=== PATIENT | female | born 1965 | race Caucasian/White ===

== ENCOUNTER 2020-08-05 22:47 | Emergency (ER) | payer OTHER ==
[~2020-08-05 22:47] MED LIST: ABILIFY10 MG PO; ALBUTEROL2.5 MG/3 M INH; AMITRIPTYLINE H50 MG PO; AMLODIPINE BESY10 MG PO; ASPIRIN EC81 MG PO; CATAPRES 0.1MG0.1 MG PO; CLINDAMYCIN HC300 MG PO; CLONAZEPAM1 MG PO; CLONIDINE HCL0.1 M1 PO; COZAAR50 MG PO; ELAVIL 50 MG TA50 MG PO; FELDENE10 MG PO; FLEXERIL 10 MG10 MG PO; IBUPROFEN600 MG PO; IMDUR ER TAB 3030 MG PO; IMDUR ER TAB 6060 MG PO; KLONOPIN TAB 00.5 MG PO; LAMICTAL100 MG PO; LAMOTRIGINE150 MG PO; LOPRESSOR50 MG PO; LOSARTAN POTAS100 MG PO; MEDROL DOSEPAK 24 MG PO; NAPROSYN500 MG PO; NORFLEX 100 MG100 MG PO; PAXIL20 MG PO; PAXIL40 MG PO; PERCOCET 5/325 T1 EA PO; PERCOCET 7.5-31 EACH PO; PREDNISONE20 MG PO; PROAIR HFA8.5 GM INH; PROTONIX 40 MG40 M1 PO; PROTONIX40 MG PO; REGLAN5 MG PO; SENOKOT-S TABL1 EACH PO; SEROQUEL100 MG PO; SINGULAIR10 MG PO; TIZANIDINE HCL4 MG PO; TOPROL XL 25 MG25 MG PO; TORADOL 10 MG T10 MG PO; TRAZODONE HCL100 MG PO; ULTRAM50 MG PO; VIBRAMYCIN100 MG PO; VRAYLAR; VRAYLAR3 MG PO; Voltaren Gel 1 % TOP; ZOFRAN ODT 4 MG4 MG SL
[2020-08-05 23:30] LABS: HEMOGLOBIN 11.3 gm/dl (12.3-15.3); RED BLOOD COUNT 3.8 M/UL (4.00-5.10); WHITE BLOOD COUNT 7.5 K/UL (4.5-11.0)
[2020-08-05 23:48] LABS: BUN/CREATININE RATIO 11 (0-10)
[2020-08-06] MEDS ORDERED: BACTRIM DS TAB1 EACH PO (00:26)
[2020-08-06] MEDS ORDERED: PERCOCET 5-3251 EACH PO (00:26)
== END 2020-08-06 00:35 | disposition home or self-care (01) ==
LOC: ER1 22:47
PROVIDERS: Family Medicine
DX: L03.116 Cellulitis of left lower limb (principal); E11.9 Type 2 diabetes mellitus without complications; I10 Essential (primary) hypertension; J44.9 Chronic obstructive pulmonary disease, unspecified
CPT/HCPCS: 80053; 82550; 82553; 83874; 84484; 85025; 85379; 85610; 85730; 99283

== ENCOUNTER 2020-11-16 13:45 | Emergency (ER) | payer OTHER ==
[~2020-11-16 13:45] MED LIST changes: +BACTRIM DS TAB1 EACH PO; +PERCOCET 5-3251 EACH PO
[2020-11-16 14:15] LABS: HEMOGLOBIN 11.6 gm/dl (12.3-15.3); RED BLOOD COUNT 3.93 M/UL (4.00-5.10); WHITE BLOOD COUNT 7.3 K/UL (4.5-11.0)
[2020-11-16 14:55] LABS: BUN/CREATININE RATIO 7 (0-10)
== END 2020-11-16 17:05 | disposition left against medical advice (07) ==
LOC: ER1 13:45
PROVIDERS: Family Medicine
DX: R07.9 Chest pain, unspecified (principal); K21.9 Gastro-esophageal reflux disease without esophagitis; I10 Essential (primary) hypertension; J44.9 Chronic obstructive pulmonary disease, unspecified; E11.9 Type 2 diabetes mellitus without complications; F17.210 Nicotine dependence, cigarettes, uncomplicated; Z90.710 Acquired absence of both cervix and uterus; Z79.01 Long term (current) use of anticoagulants; Z88.0 Allergy status to penicillin; Z88.1 Allergy status to other antibiotic agents
CPT/HCPCS: 71045; 80053; 82550; 82553; 83874; 84484; 85025; 85379; 85610; 93005; 99285

== ENCOUNTER 2021-02-02 03:17 | Emergency (ER) | payer OTHER ==
[2021-02-02 04:24] LABS: HEMOGLOBIN 12.6 gm/dl (12.3-15.3); RED BLOOD COUNT 4.1 M/UL (4.00-5.10); WHITE BLOOD COUNT 8.1 K/UL (4.5-11.0)
[2021-02-02 04:40] LABS: BUN/CREATININE RATIO 14 (0-10)
== END 2021-02-02 05:57 | disposition home or self-care (01) ==
LOC: ER1 03:17
PROVIDERS: Physician Assistant
DX: R10.84 Generalized abdominal pain (principal); E78.5 Hyperlipidemia, unspecified; E11.9 Type 2 diabetes mellitus without complications; I10 Essential (primary) hypertension; Z90.49 Acquired absence of other specified parts of digestive tract; Z90.89 Acquired absence of other organs; Z90.710 Acquired absence of both cervix and uterus; F17.210 Nicotine dependence, cigarettes, uncomplicated
CPT/HCPCS: 71045; 80053; 81001; 82550; 82553; 83605; 83735; 83880; 84100; 84484; 85025; 85610; 85652; 85730; 86140; 87040; 87086; 96374; 99284; J1885

== ENCOUNTER 2021-03-25 21:06 | Emergency (ER) | payer OTHER | END 2021-03-25 22:25 | disposition home or self-care (01) | LOC: ER1 21:06 | DX: R07.9 Chest pain, unspecified (principal); E11.9 Type 2 diabetes mellitus without complications; I10 Essential (primary) hypertension; Z90.49 Acquired absence of other specified parts of digestive tract; Z90.89 Acquired absence of other organs; Z90.710 Acquired absence of both cervix and uterus; Z88.0 Allergy status to penicillin; Z88.5 Allergy status to narcotic agent; F17.210 Nicotine dependence, cigarettes, uncomplicated | CPT/HCPCS: 93005; 99284 ==

== ENCOUNTER → 2021-09-09 | Emergency (ER) | payer OTHER ==
[~2021-09-09] MED LIST changes: +MOBIC15 MG PO
[2021-09-09 19:05] LABS: HEMOGLOBIN 11.8 gm/dl (12.3-15.3); RED BLOOD COUNT 3.91 M/UL (4.00-5.10); WHITE BLOOD COUNT 11.9 K/UL (4.5-11.0)
[2021-09-09 19:40] LABS: BUN/CREATININE RATIO 7 (0-10)
== END | disposition home or self-care (01) ==
LOC: ER1 17:08
PROVIDERS: Physician Assistant Medical
DX: R07.89 Other chest pain (principal); Z20.822 Contact with and (suspected) exposure to COVID-19; E11.9 Type 2 diabetes mellitus without complications; I10 Essential (primary) hypertension; K21.9 Gastro-esophageal reflux disease without esophagitis; J44.9 Chronic obstructive pulmonary disease, unspecified; F17.210 Nicotine dependence, cigarettes, uncomplicated; Z88.8 Allergy status to other drugs, medicaments and biological substances
CPT/HCPCS: 71045; 80053; 82550; 82553; 83874; 84484; 85025; 87040; 93005; 99285; J1885; Q9967; U0002